=== PATIENT | female | born 1965 | race Caucasian/White ===

== ENCOUNTER → 2020-12-31 | Outpatient (CLI) | payer OTHER ==
[~2020-12-31] MED LIST: GADOTERATE 5 MMOL/10ML VIAL. INT ART ONE; IOHEXOL 300 MG/ML 50 ML VIAL. INT ART ONE; LIDOCAINE 1% Multi-Dose 20 ML VIAL. ID ONE
--- NOTE | 2020-12-31 15:26 | KCIC ---
Examination: MR arthrogram of the right hip without contrast HISTORY: History of right hip pain COMPARISON: None TECHNIQUE: Multiplanar, multisequence MR imaging was performed after arthrogram injection. FINDINGS: The attachment of the hamstring tendon to the ischial tuberosity, attachment of the gluteal tendons t o the greater trochanter, attachment of the iliopsoas tendon to the lesser trochanter and the attachm ent of the rectus femoris tendon to the anterior inferior iliac spine grossly appears intact. The right femoral head is within the acetabulum. Moderate joint space loss identified in the right hi p joint likely degenerative changes. Small subchondral cystic changes identified in the supraspinatus tendon likely degenerative changes. There is superficial fraying of the labrum superiorly. Small ost eophyte formation identified in the inferior femoral head. There is superficial fraying of cartilage identified in the right hip joint. IMPRESSION: 1. Moderate degenerative changes right hip joint. 2. Grade I chondromalacia right hip joint. Electronically signed by: Aden Bull MD (12/31/2020 3:24 PM) [id number]
--- NOTE | 2020-12-31 15:48 | KCIC ---
EXAM: FLUOROSCPY-GUIDED HIP ARTHROGRAM History: Right hip pain COMPARISON: None available TECHNIQUE: Consent: A written, informed consent was obtained from the patient prior to the procedure. Appropriate time out procedures were performed. The skin was prepped and draped in the usual fashion under aseptic precautions. Dilute 1% lidocaine w as used for local anesthesia. Under fluoroscopic guidance a 22 gauge long spinal needle was used to access the hip joint. 12 cc mixture 5 mL lidocaine, 10 ml normal saline, 5 mL are detected contrast and 0.1 mL clariscan wa s injected was injected into the hip joint. The patient was transferred to the MRI suite No immediate complications. IMPRESSION: Technically successful right hip arthrogram. Total fluoroscopic time 16 seconds. Total fluoroscopic image 1. Electronically signed by: Aden Bull MD (12/31/2020 3:46 PM) [id number]
--- NOTE | 2021-02-04 11:50 | KCIC ---
EXAM: FLUOROSCPY-GUIDED HIP ARTHROGRAM History: Right hip pain COMPARISON: None available TECHNIQUE: Consent: A written, informed consent was obtained from the patient prior to the procedure. Appropriate time out procedures were performed. The skin was prepped and draped in the usual fashion under aseptic precautions. Dilute 1% lidocaine was used for local anesthesia. Under fluoroscopic guidance a 22 gauge long spinal needle was used to access the hip joint. 12 cc mixture 5 mL lidocaine, 10 ml normal saline, 5 mL are detected contrast and 0.1 mL clariscan was injected was injected into the hip joint. The patient was transferred to the MRI suite No immediate complications. IMPRESSION: Technically successful right hip arthrogram. Total fluoroscopic time 16 seconds. Total fluoroscopic image 1. Electronically signed by: Aden Bull MD (12/31/2020 3:46 PM) [id number]
== END | disposition home or self-care (01) ==
LOC: KCIC 12:47
PROVIDERS: ATTEND Orthopaedic Surgery
DX: M25.551 Pain in right hip (principal); M94.251 Chondromalacia, right hip; M16.11 Unilateral primary osteoarthritis, right hip; Z88.0 Allergy status to penicillin
CPT/HCPCS: 27093; 73719; 77002; A9575; J3490; Q9967; 20610